=== PATIENT | female | born 1970 | race Asian ===

== ENCOUNTER 2017-10-10 09:21 | Emergency (ER) | payer OTHER | END 2017-10-10 09:57 | disposition home or self-care (01) | LOC: M ED 09:21 | DX: J32.9 Chronic sinusitis, unspecified (principal); R05 Cough; Z87.09 Personal history of other diseases of the respiratory system; Z88.8 Allergy status to other drugs, medicaments and biological substances | CPT/HCPCS: 99282 ==

== ENCOUNTER → 2018-03-21 | Outpatient (REF) | payer OTHER ==
[2018-03-21 17:06] LABS: ALBUMIN 4.1 GM/DL (3.2-5.2); ALBUMIN/GLOBULIN RATIO 1.14 (1.00-1.93); ALKALINE PHOSPHATASE 52 U/L (45-117); ALT/SGPT 21 U/L (12-78); ANION GAP 7 MEQ/L (8-16); AST/SGOT 16 U/L (7-37); BILIRUBIN,TOTAL 0.4 MG/DL (0.2-1.0); BLOOD UREA NITROGEN 10 MG/DL (7-18); CALCIUM LEVEL 8.7 MG/DL (8.5-10.1); CARBON DIOXIDE LEVEL 31 MEQ/L (21-32); CHLORIDE LEVEL 104 MEQ/L (98-107); CREATININE FOR GFR 0.62 MG/DL (0.55-1.30); FREE T4 0.73 NG/DL (0.76-1.46); GLOMERULAR FILTRATION RATE > 60.0 (>58); GLUCOSE, FASTING 81 MG/DL (70-100); POTASSIUM SERUM 3.4 MEQ/L (3.5-5.1); SODIUM LEVEL 142 MEQ/L (136-145); TOTAL PROTEIN 7.7 GM/DL (6.4-8.2)
== END ==
LOC: M SFHCPLAZ 13:54
DX: E89.0 Postprocedural hypothyroidism (principal)
CPT/HCPCS: 84443

== ENCOUNTER → 2018-05-07 | Outpatient (REF) | payer OTHER | LOC: M SFHCPLAZ 18:16 | DX: Z12.4 Encounter for screening for malignant neoplasm of cervix (principal) | CPT/HCPCS: 88142 ==

== ENCOUNTER → 2018-05-07 | Outpatient (REF) | payer OTHER ==
[2018-05-07 17:40] LABS: FREE T4 0.65 NG/DL (0.76-1.46)
== END ==
LOC: M SFHCPLAZ 15:13
DX: E89.0 Postprocedural hypothyroidism (principal)
CPT/HCPCS: 84443

== ENCOUNTER → 2018-05-14 | Outpatient (CLI) | payer OTHER | LOC: M WHC 07:52 | DX: Z12.31 Encounter for screening mammogram for malignant neoplasm of breast (principal); Z80.41 Family history of malignant neoplasm of ovary | CPT/HCPCS: 77067 ==

== ENCOUNTER → 2018-07-04 | Outpatient (REF) | payer OTHER ==
[~2018-07-04] MED LIST: CHERSYP3 PO; KEFL500C17 PO; TESS100C PO
[2018-07-04 12:14] LABS: FREE T4 0.97 NG/DL (0.76-1.46); THYROID STIMULATING HORMONE 10.4 uIU/ML (0.358-3.740)
[2018-07-04 12:16] LABS: TOTAL 25(OH) VITAMIN D 40.6 NG/ML (30.0-100.0)
== END ==
LOC: M SFHCPLAZ 07:57
PROVIDERS: ATTEND Nurse Practitioner Family
DX: E89.0 Postprocedural hypothyroidism (principal)

== ENCOUNTER → 2018-09-11 | Outpatient (REF) | payer OTHER ==
[2018-09-11 10:57] LABS: FREE T4 1.15 NG/DL (0.76-1.46); THYROID STIMULATING HORMONE 0.707 uIU/ML (0.358-3.740)
== END ==
LOC: M SFHCPLAZ 08:34
PROVIDERS: ATTEND Nurse Practitioner Family
DX: E89.0 Postprocedural hypothyroidism (principal)

== ENCOUNTER → 2018-11-17 | Outpatient (REF) | payer OTHER ==
[2018-11-17 13:33] LABS: BLOOD UREA NITROGEN 11 MG/DL (7-18); CALCIUM LEVEL 8.5 MG/DL (8.5-10.1); CARBON DIOXIDE LEVEL 27 MEQ/L (21-32); CHLORIDE LEVEL 104 MEQ/L (98-107); CREATININE FOR GFR 0.65 MG/DL (0.55-1.30); GLOMERULAR FILTRATION RATE > 60.0 (>58); GLUCOSE, FASTING 72 MG/DL (70-100); MAGNESIUM LEVEL 2.4 MG/DL (1.8-2.4); POTASSIUM SERUM 3.4 MEQ/L (3.5-5.1); SODIUM LEVEL 138 MEQ/L (136-145)
== END ==
LOC: M SFHCPLAZ 08:47
PROVIDERS: ATTEND Nurse Practitioner Family
DX: E89.0 Postprocedural hypothyroidism (principal); R03.0 Elevated blood-pressure reading, without diagnosis of hypertension

== ENCOUNTER 2018-12-24 08:29 | Emergency (ER) | payer OTHER ==
[~2018-12-24] VITALS: Ht 157.5 cm; Wt 60.6 kg
[2018-12-24] MEDS ORDERED: LEVO125T4 PO (08:51)
[2018-12-24] MEDS ORDERED: LABE10TAB PO (08:52)
[2018-12-24 10:00] LABS: BASO # 0.1 10^3/uL (0.0-0.2); BASO % 0.7 % (0.0-1.0); EOS # 0.2 10^3/uL (0.0-0.50); EOS % 2.7 % (0.0-3.0); HEMATOCRIT 41.5 % (36.0-47.0); HEMOGLOBIN 13.8 g/dl (12.0-15.5); LYMPH # 1.6 10^3/uL (1.5-4.5); LYMPH % 23.1 % (24.0-44.0); MEAN CORPUSCULAR HEMOGLOBIN 30.3 pg (27.0-33.0); MEAN CORPUSCULAR HGB CONC 33.3 g/dl (32.0-36.5); MONO # 0.4 10^3/uL (0.0-0.8); MONO % 5.8 % (0.0-5.0); NEUTROPHILS # 4.5 10^3/uL (1.8-7.7); NEUTROPHILS % 67.6 % (36.0-66.0); PLATELET COUNT, AUTOMATED 249 10^3/uL (150-450); RED BLOOD COUNT 4.56 10^6/uL (4.00-5.40); WHITE BLOOD COUNT 6.7 10^3/uL (4.0-10.0)
[2018-12-24 10:24] LABS: BLOOD UREA NITROGEN 12 MG/DL (7-18); CALCIUM LEVEL 8.1 MG/DL (8.5-10.1); CARBON DIOXIDE LEVEL 27 MEQ/L (21-32); CHLORIDE LEVEL 108 MEQ/L (98-107); CREATININE FOR GFR 0.74 MG/DL (0.55-1.30); GLOMERULAR FILTRATION RATE > 60.0 (>58); GLUCOSE, FASTING 125 MG/DL (70-100); POTASSIUM SERUM 3.7 MEQ/L (3.5-5.1); SODIUM LEVEL 141 MEQ/L (136-145)
[2018-12-24 11:45] VITALS: BP 166/99
[2018-12-24] MEDS ORDERED: ACETAMINOPHEN 325 MG TAB PO ONE (11:45)
--- NOTE | 2018-12-24 12:08 | REP ---
PELVIC ULTRASOUND: Real-time sonographic evaluation of the pelvis performed utilizing transabdominal and endovaginal technique. Bladder measures 8.0 x 7.2 x 10.0 cm. Uterus measures 9.4 x 4.4 x 6.5 cm. Endometrial thickness is 7 mm. There are multiple fibroids in the myometrium. Largest is 3.4 x 1.7 x 1.9 cm. Right ovary measures 6.5 x 3.6 x 4.4 cm and contains a hypoechoic homogeneous lesion measuring 5.7 x 3.4 x 2.8 cm representing either a hemorrhagic cyst or endometrioma most likely. Left ovary measures 2.6 x 1.9 x 2.0 cm. There is no torsion bilaterally, resistive index right ovary 0.55 and left ovary 0.59. No free fluid is seen. IMPRESSION: Fibroid uterus. Hypoechoic nodule in the right ovary with homogeneous internal echoes probably represents a hemorrhagic cyst or endometrioma. This measures 5.7 x 3.4 x 2.8 cm. Recommend cheese wrapper consult. Further evaluation could be made with followup ultrasound in about 2 months or MRI of the pelvis. Electronically Signed by Jose Hamilton MD 12/24/2018 04:55 P
--- NOTE | 2018-12-26 07:39 | ED PDOC ---
Post-Departure Follow-Up aby betancourt and dr lawrence faxed formal report of pelvic us for fu Kem Quintana MD Dec 26, 2018 07:39
== END 2018-12-24 11:56 | disposition home or self-care (01) ==
LOC: M ED 08:29
DX: D25.9 Leiomyoma of uterus, unspecified (principal); N83.8 Other noninflammatory disorders of ovary, fallopian tube and broad ligament; R10.2 Pelvic and perineal pain; E03.9 Hypothyroidism, unspecified; I10 Essential (primary) hypertension; Z79.899 Other long term (current) drug therapy; Z88.8 Allergy status to other drugs, medicaments and biological substances

== ENCOUNTER → 2019-01-28 | Outpatient (REF) | payer OTHER ==
[~2019-01-28] MED LIST changes: +LABE10TAB PO; +LEVO125T4 PO
[2019-01-28 12:58] LABS: ALBUMIN 4.1 GM/DL (3.2-5.2); ALT/SGPT 21 U/L (12-78); BILIRUBIN,TOTAL 0.6 MG/DL (0.2-1.0); BLOOD UREA NITROGEN 11 MG/DL (7-18); CALCIUM LEVEL 8.7 MG/DL (8.5-10.1); CARBON DIOXIDE LEVEL 28 MEQ/L (21-32); CHLORIDE LEVEL 107 MEQ/L (98-107); CHOLESTEROL LEVEL 200 MG/DL (<200); CHOLESTEROL RISK RATIO 3.703 (<5); CREATININE FOR GFR 0.74 MG/DL (0.55-1.30); GLOMERULAR FILTRATION RATE > 60.0 (>58); GLUCOSE, FASTING 91 MG/DL (70-100); HDL CHOLESTEROL 54 MG/DL (>40); LDL CHOLESTEROL 131 MG/DL (<100); NON-HDL-C 146 MG/DL; SODIUM LEVEL 141 MEQ/L (136-145); TOTAL PROTEIN 7.9 GM/DL (6.4-8.2); TRIGLYCERIDES LEVEL 75 MG/DL (<150)
== END ==
LOC: M SFHCPLAZ 09:45
PROVIDERS: ATTEND Nurse Practitioner Family
DX: Z13.220 Encounter for screening for lipoid disorders (principal); I10 Essential (primary) hypertension; E89.0 Postprocedural hypothyroidism

== ENCOUNTER → 2019-02-25 | Outpatient (CLI) | payer OTHER ==
--- NOTE | 2019-02-25 18:35 | REP ---
Pelvic sonography: History: Unspecified ovarian cyst. Comparison pelvic sonography December 24, 2018 showed a 5.7 cm hypoechoic lesion in the right ovary. Findings: Uterine dimensions are 8.5 x 4.7 x 4.2 cm. Endometrial echo is 1.1 cm thick. No free fluid is seen in the cul-de-sac. Normal left ovary is seen measuring 3.0 x 2.1 x 2.4 cm. Right ovary is enlarged measuring 6.6 x 3.4 x 5.7 cm. There is a 4.8 x 3.0 x 4.2 cm hypoechoic lesion in the right ovary containing echogenic foci. There is Doppler flow in its periphery. Normal Doppler flow is seen in the left ovary. There are multiple uterine fibroids, the largest of which measures 2.7 cm in greatest diameter. Impression: Fibroid uterus. Persistent 4.8 cm hypoechoic lesion in the right adnexa. Possible endometrioma versus cystic ovarian neoplasm. Electronically Signed by Elvis Lisa MD 02/25/2019 09:13 P
== END ==
LOC: M RAD 11:08
PROVIDERS: ATTEND Obstetrics & Gynecology
DX: D25.9 Leiomyoma of uterus, unspecified (principal); N83.291 Other ovarian cyst, right side

== ENCOUNTER → 2019-04-16 | Outpatient (CLI) | payer OTHER ==
[2019-04-17 11:05] LABS: CA 125 49.9 U/ML (<30.2); CA19-9 TUMOR MARKER,CARBOHYDRA 12.7 U/ML (<35.0)
[2019-04-22 08:19] LABS: HE4 52.6 pmol/L (0.0-63.6); INHIBIN B 73.8 pg/mL (.)
== END ==
LOC: M SMT 08:44
PROVIDERS: ATTEND Obstetrics & Gynecology
DX: N83.201 Unspecified ovarian cyst, right side (principal)

== ENCOUNTER → 2019-04-22 | Outpatient (CLI) | payer OTHER ==
--- NOTE | 2019-04-22 10:31 | REP ---
PELVIC ULTRASOUND: Real-time sonographic evaluation of the pelvis was performed. Comparison made with prior studies 12/24/2018 and 02/25/2019. Transabdominal and endovaginal technique is utilized. The urinary bladder measures 2.8 x 1.8 x 5.7 cm. The uterus measures 9.2 x 4.9 x 5.8 cm. Multiple fibroids are again seen in the uterus. The largest measures 2.1 x 2.0 x 2.6 cm. This is posteriorly located. Endometrial thickness is 10 mm. Right ovary is again noted to be enlarged at 5.6 x 3.6 x 5.3 cm. Left ovary measures 4.0 x 2.6 x 3.8 cm. There is no ovarian torsion bilaterally. Once again in the right ovary there is a hypoechoic mass with diffuse low level echoes having the appearance of a complex cyst. There is a tiny echogenic focus within it. It measures 4.1 x 2.4 x 4.4 cm. On the original ultrasound of 12/24/2018 the measurements were 5.7 x 3.4 x 2.8 cm. Overall volume of the lesion has decreased from 27.1 mL to 21.6 mL. In the left ovary there is a simple appearing cyst with a thin septation 2.8 x 1.6 x 3.2 cm. No free fluid is seen. IMPRESSION: Fibroid uterus. Complex cystic lesion again seen in the right ovary as discussed above. Based on measurements and volume calculations this has slightly decreased in size since the original ultrasound 12/24/2018. Simple cyst with thin septation left ovary was not seen on the prior studies. Electronically Signed by Jose Hamilton MD 04/22/2019 06:22 P
== END ==
LOC: M RAD 07:47
PROVIDERS: ATTEND Obstetrics & Gynecology
DX: N83.201 Unspecified ovarian cyst, right side (principal)

== ENCOUNTER → 2019-05-14 | Outpatient (REF) | payer OTHER ==
[2019-05-14 15:54] LABS: BLOOD UREA NITROGEN 12 MG/DL (7-18); CALCIUM LEVEL 8.6 MG/DL (8.5-10.1); CARBON DIOXIDE LEVEL 29 MEQ/L (21-32); CHLORIDE LEVEL 105 MEQ/L (98-107); CREATININE FOR GFR 0.74 MG/DL (0.55-1.30); FREE T4 1.17 NG/DL (0.76-1.46); GLOMERULAR FILTRATION RATE > 60.0 (>58); GLUCOSE, FASTING 135 MG/DL (70-100); POTASSIUM SERUM 3.7 MEQ/L (3.5-5.1); SODIUM LEVEL 139 MEQ/L (136-145)
== END ==
LOC: M SFHCPLAZ 13:39
PROVIDERS: ATTEND Nurse Practitioner Family
DX: E89.0 Postprocedural hypothyroidism (principal); I10 Essential (primary) hypertension

== ENCOUNTER → 2019-07-29 | Outpatient (CLI) | payer OTHER ==
--- NOTE | 2019-07-30 02:50 | REP ---
Clinical: Follow-up right ovarian cyst. Comparison: 04/22/2019. Technique: Transabdominal pelvic ultrasound followed by transvaginal examination for better evaluation of the endometrium and adnexa with color Doppler evaluation of the ovaries. Findings: Anteverted uterus measures 9.2 x 5.0 x 5.4 cm. Endometrial complex measures 13 mm thickness. Possible posterior subserosal fibroid measuring 2.1 x 1.6 x 2.7 cm cannot be excluded. Left ovary is not visualized. Right ovary measures 4.3 x 2.3 x 2.4 cm and includes 2.2 x 2.2 x 2.1 cm simple physiologic cyst and 1.0 x 1.2 x 0.9 cm complex possibly hemorrhagic cysts. Normal vascularity to the right ovary noted without torsion. Bladder is unremarkable and measures approximately 11.3 x 6.1 x 10.8 cm. Impression: 1. Heterogeneous uterus with possible 2.7 cm posterior subserosal fibroid. 2. Cystic changes to the right ovary on current examination appear physiologic.
== END ==
LOC: M WHC 07:41
PROVIDERS: ATTEND Obstetrics & Gynecology
DX: N83.201 Unspecified ovarian cyst, right side (principal)

== ENCOUNTER → 2019-07-31 | Outpatient (CLI) | payer OTHER ==
[2019-07-31 11:20] LABS: BLOOD UREA NITROGEN 12 MG/DL (7-18); CALCIUM LEVEL 8.8 MG/DL (8.5-10.1); CARBON DIOXIDE LEVEL 27 MEQ/L (21-32); CHLORIDE LEVEL 104 MEQ/L (98-107); CREATININE FOR GFR 0.64 MG/DL (0.55-1.30); FREE T4 1.18 NG/DL (0.76-1.46); GLOMERULAR FILTRATION RATE > 60.0 (>58); GLUCOSE, FASTING 106 MG/DL (70-100); SODIUM LEVEL 141 MEQ/L (136-145); THYROID STIMULATING HORMONE 0.114 uIU/ML (0.358-3.740)
== END ==
LOC: M PLALAB 08:04
PROVIDERS: ATTEND Nurse Practitioner Family
DX: E89.0 Postprocedural hypothyroidism (principal); I10 Essential (primary) hypertension

== ENCOUNTER → 2019-08-25 | Outpatient (REF) | payer OTHER | LOC: M SFHCWAGY 18:34 | PROVIDERS: ATTEND Obstetrics & Gynecology | DX: Z12.4 Encounter for screening for malignant neoplasm of cervix (principal) ==

== ENCOUNTER → 2019-10-09 | Outpatient (CLI) | payer OTHER ==
[2019-10-09 16:48] LABS: CREATININE, URINE 80.2 MG/DL; MALB URINE SIEMENS 17.5 MG/L; MAU/CREAT RATIO 21.8 MCG/MG (0.0-30.0)
[2019-10-09 16:49] LABS: BLOOD UREA NITROGEN 11 MG/DL (7-18); CALCIUM LEVEL 8.4 MG/DL (8.5-10.1); CARBON DIOXIDE LEVEL 27 MEQ/L (21-32); CHLORIDE LEVEL 104 MEQ/L (98-107); CREATININE FOR GFR 0.62 MG/DL (0.55-1.30); GLOMERULAR FILTRATION RATE > 60.0 (>58); GLUCOSE, FASTING 85 MG/DL (70-100); POTASSIUM SERUM 3.6 MEQ/L (3.5-5.1); SODIUM LEVEL 138 MEQ/L (136-145)
[2019-10-09 16:50] LABS: TOTAL 25(OH) VITAMIN D 33.9 NG/ML (30.0-100.0)
== END ==
LOC: M WUC 14:59
PROVIDERS: ATTEND Nurse Practitioner Family
DX: E89.0 Postprocedural hypothyroidism (principal); I10 Essential (primary) hypertension; M62.830 Muscle spasm of back

== ENCOUNTER 2019-11-16 08:21 | Emergency (ER) | payer OTHER ==
[~2019-11-16] VITALS: Ht 157.5 cm; Wt 64.2 kg
[2019-11-16] MEDS ORDERED: TYLENOL (08:32)
[2019-11-16] MEDS: ACETAMINOPHEN TAB 650MG DOSE (2X325MG) PO ONE (08:53)
[2019-11-16 08:58] LABS: BASO # 0.1 10^3/uL (0.0-0.2); EOS # 0.1 10^3/uL (0.0-0.5); EOS % 1.1 % (0.0-3.0); HEMATOCRIT 43.2 % (36.0-47.0); HEMOGLOBIN 15.1 g/dl (12.0-15.5); LYMPH # 2.1 10^3/uL (1.5-5.0); LYMPH % 26.3 % (24.0-44.0); MEAN CORPUSCULAR HEMOGLOBIN 30.2 pg (27.0-33.0); MEAN CORPUSCULAR VOLUME 86.4 fl (80.0-96.0); MONO # 0.5 10^3/uL (0.0-0.8); NEUTROPHILS # 5.2 10^3/uL (1.5-8.5); NEUTROPHILS % 64.7 % (36.0-66.0); PLATELET COUNT, AUTOMATED 283 10^3/uL (150-450); WHITE BLOOD COUNT 8.1 10^3/uL (4.0-10.0)
[2019-11-16 08:59] LABS: AMORPHOUS SEDIMENT SMALL (NEGATIVE); APPEARANCE, URINE HAZY (CLEAR); BACTERIA, URINE AUTO 1+ (NEGATIVE); BILIRUBIN, URINE AUTO NEGATIVE (NEGATIVE); BLOOD, URINE BLOOD 3+ (NEGATIVE); COLOR, URINE YELLOW (YELLOW); GLUCOSE, URINE (UA) AUTO NEGATIVE (NEGATIVE); KETONE, URINE AUTO NEGATIVE (NEGATIVE); LEUKOCYTE ESTERASE, URINE AUTO TRACE (NEGATIVE); MUCUS, URINE SMALL (NEGATIVE); NITRITE, URINE AUTO NEGATIVE (NEGATIVE); PROTEIN, URINE AUTO 3+ mg/dL (NEGATIVE); RBC, URINE AUTO TNTC /HPF (0-3); SPECIFIC GRAVITY URINE AUTO 1.018 (1.002-1.035); SQUAMOUS EPITHELIAL CELL UR AU 1 /HPF (0-6); UROBILINOGEN, URINE AUTO 0.2 mg/dL (0.0-2.0); WBC, URINE AUTO 1 /HPF (0-3)
[2019-11-16 09:26] LABS: ALBUMIN 4.3 GM/DL (3.2-5.2); ALT/SGPT 28 U/L (12-78); BILIRUBIN,TOTAL 0.4 MG/DL (0.2-1.0); BLOOD UREA NITROGEN 11 MG/DL (7-18); CARBON DIOXIDE LEVEL 26 MEQ/L (21-32); CHLORIDE LEVEL 102 MEQ/L (98-107); CREATININE FOR GFR 0.76 MG/DL (0.55-1.30); GLOMERULAR FILTRATION RATE > 60.0 (>58); GLUCOSE, FASTING 120 MG/DL (70-100); POTASSIUM SERUM 3.6 MEQ/L (3.5-5.1); SODIUM LEVEL 137 MEQ/L (136-145); TOTAL PROTEIN 8.5 GM/DL (6.4-8.2)
--- NOTE | 2019-11-16 10:23 | REP ---
PELVIC ULTRASOUND: Real-time sonographic evaluation of the pelvis performed. Urinary bladder is empty. The uterus measures 8.2 x 5.5 x 6.2 cm. Endometrial thickness is 12 mm. There appears to be a posterior uterine fibroid 2.6 x 2.0 x 2.2. No endometrial fluid collection is seen. Right ovary measures 3.8 x 2.2 x 3.1 cm and left ovary 2.5 x 2.5 x 2.2 cm. Dominant follicle in the right ovary has a maximum diameter if 1.7 cm. There is no evidence of ovarian torsion, blood flow is seen in each ovary with duplex Doppler evaluation. No adnexal mass or free fluid is seen. IMPRESSION: Posterior uterine fibroid 2.6 cm maximally. No adnexal mass or free fluid. No evidence of torsion. Electronically Signed by Jose Hamilton MD 11/16/2019 11:57 A
[2019-11-16] MEDS: ONDANSETRON 4MG/2ML VIAL IV ONE (11:28)
[2019-11-16] MEDS: MORPHINE 4 MG/ML 1ML VIAL/SYRINGE (J2270) IV PRN (11:30)
--- NOTE | 2019-11-16 11:36 | REP ---
REASON: Right flank pain. PRIORS: None. The lung bases are clear. There is a 4 mm sized nonobstructing left nephrolith in the interpolar region. There are no right nephroliths. There are no ureteroliths on either side. There is no hydronephrosis or hydroureter. There are no urinary bladder calcifications. There are bilateral pelvic phleboliths. There are no choleliths. Limited evaluation of the solid intra-abdominal organs have no gross abnormalities. Evaluation of the pancreas and adrenal glands show no gross abnormalities. There is no free fluid or free air in the abdomen or pelvis. Limited evaluation of the intra-abdominal and intrapelvic bowel loops and their mesenteries show them to be within normal limits. The appendix is well visualized and is within normal limits. No free fluid or free air is seen in the abdomen or pelvis. Bone window technique throughout the examination shows the osseous structures to be within normal limits. IMPRESSION: There is a single tiny nonobstructing left nephrolith as described above. The examination is otherwise unremarkable. Electronically Signed by Harmeet Davidson DO 11/16/2019 12:12 P
[2019-11-16 13:29] VITALS: BP 135/85
== END 2019-11-16 13:35 | disposition home or self-care (01) ==
LOC: M ED 08:21
DX: D25.9 Leiomyoma of uterus, unspecified (principal); N93.8 Other specified abnormal uterine and vaginal bleeding; Z87.42 Personal history of other diseases of the female genital tract; Z88.6 Allergy status to analgesic agent; Z79.899 Other long term (current) drug therapy
CPT/HCPCS: 74176; 76830; 76856; 80053; 81001; 84702; 85025; 93976; 96374; 96375; 99283; J2270; J2405

== ENCOUNTER → 2020-01-30 | Outpatient (CLI) | payer OTHER ==
[~2020-01-30] MED LIST changes: +TYLENOL
[2020-01-30 18:33] LABS: BLOOD UREA NITROGEN 11 MG/DL (7-18); CALCIUM LEVEL 8.3 MG/DL (8.5-10.1); CARBON DIOXIDE LEVEL 28 MEQ/L (21-32); CHLORIDE LEVEL 106 MEQ/L (98-107); CREATININE FOR GFR 0.72 MG/DL (0.55-1.30); FREE T4 1.33 NG/DL (0.76-1.46); GLOMERULAR FILTRATION RATE > 60.0 (>58); GLUCOSE, FASTING 93 MG/DL (70-100); POTASSIUM SERUM 4.2 MEQ/L (3.5-5.1); SODIUM LEVEL 139 MEQ/L (136-145); THYROID STIMULATING HORMONE 0.818 uIU/ML (0.358-3.740)
== END ==
LOC: M WUC 08:28
PROVIDERS: ATTEND Nurse Practitioner Family
DX: E89.0 Postprocedural hypothyroidism (principal); I10 Essential (primary) hypertension

== ENCOUNTER → 2020-04-30 | Outpatient (CLI) | payer OTHER ==
[2020-04-30 14:06] LABS: ALBUMIN 4.1 GM/DL (3.2-5.2); ALT/SGPT 28 U/L (12-78); BILIRUBIN,TOTAL 0.6 MG/DL (0.2-1.0); BLOOD UREA NITROGEN 13 MG/DL (7-18); CALCIUM LEVEL 9.2 MG/DL (8.5-10.1); CARBON DIOXIDE LEVEL 31 MEQ/L (21-32); CHLORIDE LEVEL 105 MEQ/L (98-107); CHOLESTEROL LEVEL 210 MG/DL (<200); CHOLESTEROL RISK RATIO 3.442 (<5); CREATININE FOR GFR 0.72 MG/DL (0.55-1.30); FREE T4 0.99 NG/DL (0.76-1.46); GLOMERULAR FILTRATION RATE > 60.0 (>58); GLUCOSE, FASTING 89 MG/DL (70-100); HDL CHOLESTEROL 61 MG/DL (>40); LDL CHOLESTEROL 129 MG/DL (<100); NON-HDL-C 149 MG/DL; POTASSIUM SERUM 4.5 MEQ/L (3.5-5.1); SODIUM LEVEL 139 MEQ/L (136-145); TOTAL PROTEIN 7.7 GM/DL (6.4-8.2); TRIGLYCERIDES LEVEL 98 MG/DL (<150)
[2020-04-30 14:07] LABS: CREATININE, URINE 49.6 MG/DL; MALB URINE SIEMENS 46.8 MG/L; MAU/CREAT RATIO 94.3 MCG/MG (0.0-30.0)
[2020-05-02 11:45] LABS: VITAMIN B12 LEVEL 532 PG/ML (247-911)
[2020-05-02 11:46] LABS: FOLATE 21.6 NG/ML (>5.4)
== END ==
LOC: M WUC 09:05
PROVIDERS: ATTEND Nurse Practitioner Family
DX: I10 Essential (primary) hypertension (principal); E89.0 Postprocedural hypothyroidism; R20.2 Paresthesia of skin; M62.830 Muscle spasm of back

== ENCOUNTER → 2020-05-19 | Outpatient (CLI) | payer OTHER ==
--- NOTE | 2020-05-19 10:47 | REP ---
INDICATION: LEFT ANTERIOR SHOULDER PAIN. COMPARISON: None. TECHNIQUE: Three views FINDINGS: AC joint shows no widening of the joint space or elevated of the clavicle in relation to the acromion. No fracture of the clavicle scapula humerus or adjacent ribs see no subluxation or dislocation of the humeral head and no abnormal soft tissue calcifications. Only minimal degenerative changes at the inferior margin of the glenohumeral joint. IMPRESSION: Minimal degenerative changes glenohumeral joint without fracture, subluxation, abnormal soft tissue calcification or AC joint abnormality. <Electronically signed by Bryan Cyr > 05/19/20 [id number]
== END ==
LOC: M WUC 09:37
PROVIDERS: ATTEND Nurse Practitioner Family
DX: M25.512 Pain in left shoulder (principal)

== ENCOUNTER → 2020-08-01 | Outpatient (CLI) | payer OTHER ==
[~2020-08-01] MED LIST changes: +LABE100T4 PO; -LABE10TAB PO
[2020-08-01 11:07] LABS: FREE T4 1.5 NG/DL (0.76-1.46); THYROID STIMULATING HORMONE 0.167 uIU/ML (0.358-3.740)
== END ==
LOC: M WUC 08:28
PROVIDERS: ATTEND Nurse Practitioner Family
DX: E89.0 Postprocedural hypothyroidism (principal)

== ENCOUNTER → 2020-10-19 | Outpatient (CLI) | payer OTHER ==
[2020-10-19 10:49] LABS: BLOOD UREA NITROGEN 11 MG/DL (7-18); CALCIUM LEVEL 9.5 MG/DL (8.5-10.1); CARBON DIOXIDE LEVEL 28 MEQ/L (21-32); CHLORIDE LEVEL 104 MEQ/L (98-107); CREATININE FOR GFR 0.61 MG/DL (0.55-1.30); FREE T4 1.53 NG/DL (0.76-1.46); GLOMERULAR FILTRATION RATE > 60.0 (>58); GLUCOSE, FASTING 97 MG/DL (70-100); POTASSIUM SERUM 3.9 MEQ/L (3.5-5.1); SODIUM LEVEL 139 MEQ/L (136-145); THYROID STIMULATING HORMONE 0.127 uIU/ML (0.358-3.740)
[2020-10-19 10:53] LABS: CREATININE, URINE 15.7 MG/DL; MAU/CREAT RATIO 197.4 MCG/MG (0.0-30.0)
== END ==
LOC: M WUC 08:06
PROVIDERS: ATTEND Nurse Practitioner Family
DX: E89.0 Postprocedural hypothyroidism (principal); I10 Essential (primary) hypertension

== ENCOUNTER → 2020-11-17 | Outpatient (CLI) | payer OTHER ==
--- NOTE | 2020-11-17 18:21 | REP ---
INDICATION: R OVARIAN CYST. COMPARISON: Comparison CT study is from November 16, 2019.. TECHNIQUE: Transabdominal and transvaginal scanning were performed. FINDINGS: Uterine dimensions are normal at 9.2 x 4.3 x 4.7 cm. Endometrial echo is 0.5 cm thick and centrally placed. No free fluid is seen in the cul-de-sac. Visualized bladder berg are smooth. The right ovary has dimensions of 4.5 x 4.4 x 5.2 cm. there is a complex hypoechoic cyst in the right ovary measuring 4.6 x 3.4 x 4.6 cm. Right ovarian size is similar to the prior CT study. The left ovary dimensions are normal as well at 3.2 x 2.1 x 2.5 cm. IMPRESSION: 4.6 cm complex cystic lesion right ovary. Otherwise negative pelvic sonography.. <Electronically signed by Baudilio Lisa > 11/17/20 [id number]
== END ==
LOC: M WHC 10:13
PROVIDERS: ATTEND Obstetrics & Gynecology
DX: N83.201 Unspecified ovarian cyst, right side (principal)

== ENCOUNTER → 2020-11-17 | Outpatient (CLI) | payer OTHER ==
--- NOTE | 2020-11-17 14:34 | REP ---
INDICATION: ADDL VIEWS - LEFT BREAST KELVIN DENSITY. COMPARISON: 11/10/2020 screening exam TECHNIQUE: Diagnostic digital magnified spot compression views of the left breast were obtained in the CC and MLO projections over the region of a potential kelvin asymmetric density at the 9 o'clock position. FINDINGS: Diagnostic left mammogram shows the area of interest seen on the screening examination to have compressed out to normal appearing breast parenchyma. No abnormalities are noted. IMPRESSION: BIRADS/ACR category 2 negative mammogram. The patient letter being requested is M1. RECOMMENDATION: Repeat screening mammography recommended 1 year (for women over 40). <Electronically signed by Harmeet Davidson > 11/17/20 [id number]
== END ==
LOC: M WHC 10:21
PROVIDERS: ATTEND Nurse Practitioner Family
DX: R92.8 Other abnormal and inconclusive findings on diagnostic imaging of breast (principal)

== ENCOUNTER → 2020-12-20 | Outpatient (CLI) | payer OTHER ==
[2020-12-20 10:24] LABS: APPEARANCE, URINE HAZY (CLEAR); BACTERIA, URINE AUTO NEGATIVE (NEGATIVE); BILIRUBIN, URINE AUTO NEGATIVE (NEGATIVE); BLOOD, URINE BLOOD NEGATIVE (NEGATIVE); COLOR, URINE YELLOW (YELLOW); GLUCOSE, URINE (UA) AUTO NEGATIVE (NEGATIVE); KETONE, URINE AUTO NEGATIVE (NEGATIVE); LEUKOCYTE ESTERASE, URINE AUTO NEGATIVE (NEGATIVE); NITRITE, URINE AUTO NEGATIVE (NEGATIVE); PROTEIN, URINE AUTO NEGATIVE (NEGATIVE); RBC, URINE AUTO 1 /HPF (0-3); SQUAMOUS EPITHELIAL CELL UR AU 0 /HPF (0-6); UROBILINOGEN, URINE AUTO 0.2 mg/dL (0.0-2.0); WBC, URINE AUTO 0 /HPF (0-3)
[2020-12-20 11:14] LABS: BLOOD UREA NITROGEN 12 MG/DL (7-18); CALCIUM LEVEL 9.4 MG/DL (8.5-10.1); CARBON DIOXIDE LEVEL 31 MEQ/L (21-32); CHLORIDE LEVEL 103 MEQ/L (98-107); CREATININE FOR GFR 0.68 MG/DL (0.55-1.30); FREE T4 1.08 NG/DL (0.76-1.46); GLOMERULAR FILTRATION RATE > 60.0 (>58); GLUCOSE, FASTING 98 MG/DL (70-100); POTASSIUM SERUM 3.7 MEQ/L (3.5-5.1); SODIUM LEVEL 139 MEQ/L (136-145)
== END ==
LOC: M WUC 08:04
PROVIDERS: ATTEND Nurse Practitioner Family
DX: I10 Essential (primary) hypertension (principal); E89.0 Postprocedural hypothyroidism; R80.9 Proteinuria, unspecified

== ENCOUNTER → 2021-03-14 | Outpatient (REF) | payer OTHER ==
[2021-03-14 13:43] LABS: CREATININE, URINE 33.9 MG/DL; MALB URINE SIEMENS 87.8 MG/L; MAU/CREAT RATIO 258.9 MCG/MG (0.0-30.0)
[2021-03-14 14:09] LABS: BLOOD UREA NITROGEN 13 MG/DL (7-18); CALCIUM LEVEL 8.7 MG/DL (8.5-10.1); CARBON DIOXIDE LEVEL 30 MEQ/L (21-32); CHLORIDE LEVEL 107 MEQ/L (98-107); CREATININE FOR GFR 0.74 MG/DL (0.55-1.30); GLOMERULAR FILTRATION RATE > 60.0 (>58); GLUCOSE, FASTING 106 MG/DL (70-100); POTASSIUM SERUM 3.5 MEQ/L (3.5-5.1); SODIUM LEVEL 140 MEQ/L (136-145)
== END ==
LOC: M WUC 11:22
PROVIDERS: ATTEND Nurse Practitioner Family
DX: E89.0 Postprocedural hypothyroidism (principal); I10 Essential (primary) hypertension; R80.9 Proteinuria, unspecified

== ENCOUNTER → 2021-07-18 | Outpatient (CLI) | payer OTHER ==
[2021-07-18 19:36] LABS: MAU/CREAT RATIO 96.6 MCG/MG (0.0-30.0)
[2021-07-18 19:50] LABS: ALBUMIN 4.2 GM/DL (3.2-5.2); ALT/SGPT 30 U/L (12-78); BILIRUBIN,TOTAL 0.2 MG/DL (0.2-1.0); BLOOD UREA NITROGEN 15 MG/DL (7-18); CARBON DIOXIDE LEVEL 27 MEQ/L (21-32); CHLORIDE LEVEL 103 MEQ/L (98-107); FREE T4 0.85 NG/DL (0.76-1.46); GLOMERULAR FILTRATION RATE > 60.0 (>58); GLUCOSE, FASTING 94 MG/DL (70-100); POTASSIUM SERUM 3.7 MEQ/L (3.5-5.1); SODIUM LEVEL 139 MEQ/L (136-145); TOTAL PROTEIN 8.1 GM/DL (6.4-8.2)
[2021-07-18 19:52] LABS: TOTAL 25(OH) VITAMIN D 24.5 NG/ML (30.0-100.0)
[2021-07-18 20:28] LABS: HEMOGLOBIN A1c 5.7 %
== END ==
LOC: M WUC 15:47
PROVIDERS: ATTEND Nurse Practitioner Adult Health
DX: Z00.00 Encounter for general adult medical examination without abnormal findings (principal); E55.9 Vitamin D deficiency, unspecified; E89.0 Postprocedural hypothyroidism; Z83.3 Family history of diabetes mellitus; R80.9 Proteinuria, unspecified

== ENCOUNTER → 2021-10-26 | Outpatient (CLI) | payer OTHER ==
[2021-10-26 13:38] LABS: ALBUMIN 4.1 GM/DL (3.2-5.2); ALT/SGPT 37 U/L (12-78); BILIRUBIN,TOTAL 0.8 MG/DL (0.2-1.0); BLOOD UREA NITROGEN 13 MG/DL (7-18); CARBON DIOXIDE LEVEL 31 MEQ/L (21-32); CHLORIDE LEVEL 104 MEQ/L (98-107); GLOMERULAR FILTRATION RATE > 60.0 (>58); GLUCOSE, FASTING 102 MG/DL (70-100); POTASSIUM SERUM 3.4 MEQ/L (3.5-5.1); SODIUM LEVEL 141 MEQ/L (136-145); THYROID STIMULATING HORMONE 0.195 uIU/ML (0.358-3.740); TOTAL 25(OH) VITAMIN D 41.1 NG/ML (30.0-100.0); TOTAL PROTEIN 7.5 GM/DL (6.4-8.2)
== END ==
LOC: M WUC 08:55
PROVIDERS: ATTEND Nurse Practitioner Adult Health
DX: E55.9 Vitamin D deficiency, unspecified (principal); E89.0 Postprocedural hypothyroidism; I10 Essential (primary) hypertension

== ENCOUNTER 2021-12-26 11:18 | Emergency (ER) | payer OTHER ==
[~2021-12-26] VITALS: Ht 157.5 cm; Wt 63.6 kg
[2021-12-26] MEDS ORDERED: ERGO500029 (11:27)
[2021-12-26] MEDS ORDERED: ACET1TAB55 PO (11:27)
[2021-12-26] MEDS ORDERED: methocarbamoL 750 MG TAB PO ONE (13:45)
[2021-12-26] MEDS ORDERED: predniSONE 20 MG TAB PO ONE (13:45)
[2021-12-26] MEDS ORDERED: LIDOCAINE 5% (LIDODERM) PATCH TD ONE (13:45)
[2021-12-26 14:12] VITALS: BP 160/90
[2021-12-26] MEDS ORDERED: METH-1165 PO (15:21)
[2021-12-26] MEDS ORDERED: PRED20TA PO (15:21)
[2021-12-26] MEDS ORDERED: LIDO5DIS41 TD (15:21)
[2021-12-26] MEDS ORDERED: **NOTE PATIENT COMMENT** MISC XX SCH (21:00)
== END 2021-12-26 15:35 | disposition home or self-care (01) ==
LOC: M ED 11:18
DX: S39.012A Strain of muscle, fascia and tendon of lower back, initial encounter (principal); X58.XXXA Exposure to other specified factors, initial encounter; Y99.1 Military activity; E03.9 Hypothyroidism, unspecified; Z79.890 Hormone replacement therapy; Z88.8 Allergy status to other drugs, medicaments and biological substances; Z88.6 Allergy status to analgesic agent
CPT/HCPCS: 99283; J7512

== ENCOUNTER 2022-01-01 12:12 | Emergency (ER) | payer OTHER ==
[~2022-01-01] VITALS: Ht 157.5 cm; Wt 63.6 kg
[~2022-01-01 12:12] MED LIST changes: +ACET1TAB55 PO; +ERGO500029; +LIDO5DIS41 TD; +METH-1165 PO; +PRED20TA PO
[2022-01-01] MEDS ORDERED: LIDOCAINE 5% (LIDODERM) PATCH TD ONE (13:25)
[2022-01-01] MEDS ORDERED: ACETAMINOPHEN 500 MG TAB PO ONE (13:25)
[2022-01-01] MEDS ORDERED: methocarbamoL 750 MG TAB PO ONE (13:25)
[2022-01-01] MEDS ORDERED: traMADol 50 MG TAB PO ONE (14:20)
[2022-01-01] MEDS ORDERED: TRAM50TA2 PO (14:33)
[2022-01-01 14:44] VITALS: BP 172/96
[2022-01-02] MEDS ORDERED: **NOTE PATIENT COMMENT** MISC XX ONE (02:00)
== END 2022-01-01 14:52 | disposition home or self-care (01) ==
LOC: M ED 12:12
DX: M51.36 Other intervertebral disc degeneration, lumbar region (principal); M51.37 Other intervertebral disc degeneration, lumbosacral region; X50.0XXA Overexertion from strenuous movement or load, initial encounter; Y99.0 Civilian activity done for income or pay; I10 Essential (primary) hypertension; E03.9 Hypothyroidism, unspecified; Z79.890 Hormone replacement therapy; Z79.899 Other long term (current) drug therapy; Z88.6 Allergy status to analgesic agent; Z88.8 Allergy status to other drugs, medicaments and biological substances

== ENCOUNTER → 2022-01-24 | Outpatient (REF) | payer OTHER ==
[~2022-01-24] MED LIST changes: +TRAM50TA2 PO
[2022-01-25 09:53] LABS: ALT/SGPT 52 U/L (12-78); BILIRUBIN,TOTAL 0.3 MG/DL (0.2-1.0); BLOOD UREA NITROGEN 10 MG/DL (7-18); CALCIUM LEVEL 9.1 MG/DL (8.5-10.1); CARBON DIOXIDE LEVEL 31 MEQ/L (21-32); CHLORIDE LEVEL 106 MEQ/L (98-107); CREATININE FOR GFR 0.69 MG/DL (0.55-1.30); GLOMERULAR FILTRATION RATE > 60.0 (>58); GLUCOSE, FASTING 137 MG/DL (70-100); POTASSIUM SERUM 3.8 MEQ/L (3.5-5.1); SODIUM LEVEL 142 MEQ/L (136-145); TOTAL PROTEIN 7.4 GM/DL (6.4-8.2)
[2022-01-25 09:59] LABS: TOTAL 25(OH) VITAMIN D 48.8 NG/ML (30.0-100.0)
== END ==
LOC: M LABWUC 08:55
PROVIDERS: ATTEND Nurse Practitioner Adult Health
DX: E87.6 Hypokalemia (principal); E89.0 Postprocedural hypothyroidism; E55.9 Vitamin D deficiency, unspecified

== ENCOUNTER → 2022-02-13 | Outpatient (CLI) | payer OTHER ==
[~2022-02-13] MED LIST changes: -LABE100T4 PO; +LABE100T6 PO
== END ==
LOC: M WHC 07:18
PROVIDERS: ATTEND Nurse Practitioner Adult Health
DX: Z12.31 Encounter for screening mammogram for malignant neoplasm of breast (principal)

== ENCOUNTER → 2022-02-21 | Outpatient (CLI) | payer OTHER | LOC: M WHC 06:53 | PROVIDERS: ATTEND Obstetrics & Gynecology | DX: N83.201 Unspecified ovarian cyst, right side (principal) ==

== ENCOUNTER → 2022-03-21 | Outpatient (CLI) | payer OTHER ==
[2022-03-21 11:13] LABS: HEMATOCRIT 42.4 % (36.0-47.0); HEMOGLOBIN 13.8 g/dl (12.0-15.5); MEAN CORPUSCULAR HEMOGLOBIN 29.3 pg (27.0-33.0); MEAN CORPUSCULAR HGB CONC 32.5 g/dl (32.0-36.5); PLATELET COUNT, AUTOMATED 250 10^3/uL (150-450); RED BLOOD COUNT 4.71 10^6/uL (4.00-5.40); WHITE BLOOD COUNT 5.6 10^3/uL (4.0-10.0)
[2022-03-21 12:00] LABS: ALBUMIN 4.1 GM/DL (3.2-5.2); ALT/SGPT 111 U/L (12-78); BILIRUBIN,TOTAL 0.4 MG/DL (0.2-1.0); BLOOD UREA NITROGEN 15 MG/DL (7-18); CALCIUM LEVEL 9.1 MG/DL (8.5-10.1); CARBON DIOXIDE LEVEL 29 MEQ/L (21-32); CHLORIDE LEVEL 104 MEQ/L (98-107); CREATININE FOR GFR 0.75 MG/DL (0.55-1.30); GLOMERULAR FILTRATION RATE > 60.0 (>51); GLUCOSE, FASTING 174 MG/DL (70-100); POTASSIUM SERUM 3.6 MEQ/L (3.5-5.1); SODIUM LEVEL 139 MEQ/L (136-145); TOTAL PROTEIN 7.9 GM/DL (6.4-8.2)
[2022-03-21 12:55] LABS: CA 125 7.2 U/ML (<30.2)
[2022-03-23 15:08] LABS: HE4 42.1 pmol/L (0.0-105.2)
== END ==
LOC: M PLALAB 07:07
PROVIDERS: ATTEND Obstetrics & Gynecology
DX: N83.201 Unspecified ovarian cyst, right side (principal)

== ENCOUNTER → 2022-06-26 | Outpatient (CLI) | payer OTHER ==
[2022-06-26 13:17] LABS: BASO # 0.1 10^3/uL (0.0-0.2); BASO % 1.1 % (0.0-1.0); EOS # 0.3 10^3/uL (0.0-0.5); EOS % 4.9 % (0.0-3.0); HEMATOCRIT 45.6 % (36.0-47.0); LYMPH # 2.5 10^3/uL (1.5-5.0); LYMPH % 39.3 % (24.0-44.0); MEAN CORPUSCULAR HEMOGLOBIN 29.4 pg (27.0-33.0); MEAN CORPUSCULAR HGB CONC 32.9 g/dl (32.0-36.5); MEAN CORPUSCULAR VOLUME 89.2 fl (80.0-96.0); MONO # 0.4 10^3/uL (0.0-0.8); NEUTROPHILS % 47.5 % (36.0-66.0); PLATELET COUNT, AUTOMATED 272 10^3/uL (150-450); RED BLOOD COUNT 5.11 10^6/uL (4.00-5.40); WHITE BLOOD COUNT 6.3 10^3/uL (4.0-10.0)
[2022-06-26 13:33] LABS: INR 0.91; PROTHROMBIN TIME 12.5 SECONDS (12.5-14.5)
[2022-06-26 13:34] LABS: PARTIAL THROMBOPLASTIN TIME 26.9 SECONDS (24.8-34.2)
[2022-06-26 14:02] LABS: MAGNESIUM LEVEL 2.1 MG/DL (1.8-2.4)
[2022-06-26 14:06] LABS: THYROID STIMULATING HORMONE 17.128 uIU/ML (0.55-4.78)
[2022-06-26 14:07] LABS: FREE T4 0.84 NG/DL (0.89-1.76)
[2022-06-26 14:11] LABS: ALBUMIN 4.1 G/DL (3.2-5.2); ALKALINE PHOSPHATASE 98 U/L (46-116); ALT/SGPT 200 U/L (7.0-40); AST/SGOT 129 U/L (<34); BILIRUBIN,TOTAL 0.5 MG/DL (0.3-1.2); BLOOD UREA NITROGEN 10 MG/DL (9-23); CALCIUM LEVEL 9.1 MG/DL (8.5-10.1); CARBON DIOXIDE LEVEL 28 MMOL/L (20-31); CHLORIDE LEVEL 103 MMOL/L (98-107); CHOLESTEROL LEVEL 193 MG/DL (<200); CHOLESTEROL RISK RATIO 3.35 (<5); CREATININE FOR GFR 0.64 MG/DL (0.55-1.30); GLOMERULAR FILTRATION RATE > 60.0 (>51); GLUCOSE, FASTING 102 MG/DL (60-100); HDL CHOLESTEROL 57.5 MG/DL (>40); LDL CHOLESTEROL 120.1 MG/DL (<100); NON-HDL-C 136 MG/DL; POTASSIUM SERUM 3.7 MMOL/L (3.5-5.1); SODIUM LEVEL 142 MMOL/L (136-145); TRIGLYCERIDES LEVEL 77 MG/DL (<150)
[2022-06-26 17:52] LABS: HEMOGLOBIN A1c 5.8 % (4.0-6.0)
== END ==
LOC: M PLALAB 12:04
PROVIDERS: ATTEND Family Medicine
DX: Z01.818 Encounter for other preprocedural examination (principal); R73.01 Impaired fasting glucose; I10 Essential (primary) hypertension

== ENCOUNTER → 2022-06-28 | Outpatient (CLI) | payer OTHER | LOC: M LABSMTC 09:14 | PROVIDERS: ATTEND Anesthesiology | DX: Z01.812 Encounter for preprocedural laboratory examination (principal); Z11.52 Encounter for screening for COVID-19 ==

== ENCOUNTER → 2022-06-29 | Outpatient (CLI) | payer OTHER ==
[~2022-06-29] MED LIST changes: +COLA100C5 PO; +LOSA25TA13 PO; +ONDA4TAB6 PO; +OXYC1TAB23 PO
== END ==
LOC: M RAD 14:55
PROVIDERS: ATTEND Obstetrics & Gynecology
DX: N83.201 Unspecified ovarian cyst, right side (principal); D25.9 Leiomyoma of uterus, unspecified

== ENCOUNTER 2022-07-03 06:06 | Day surgery (SDC) | payer OTHER ==
[2022-07-03] VITALS (9 sets, daily range): BP systolic 104–135; BP diastolic 60–86
[~2022-07-03] VITALS: Ht 157.5 cm; Wt 67.1 kg
[~2022-07-03 06:06] MED LIST changes: -COLA100C5 PO; -LOSA25TA13 PO; +LR 1,000 ML IV ONE; -ONDA4TAB6 PO; -OXYC1TAB23 PO
[2022-07-03] MEDS ORDERED: LR 1,000 ML IV SCH ×2 (06:30→11:30)
[2022-07-03] MEDS ORDERED: LOSA25TA13 PO (06:30)
[2022-07-03 06:45] LABS: HEMATOCRIT 42.9 % (36.0-47.0); HEMOGLOBIN 14.1 g/dl (12.0-15.5); MEAN CORPUSCULAR HEMOGLOBIN 29.2 pg (27.0-33.0); MEAN CORPUSCULAR HGB CONC 32.9 g/dl (32.0-36.5); MEAN CORPUSCULAR VOLUME 88.8 fl (80.0-96.0); PLATELET COUNT, AUTOMATED 268 10^3/uL (150-450); RED BLOOD COUNT 4.83 10^6/uL (4.00-5.40); WHITE BLOOD COUNT 6.5 10^3/uL (4.0-10.0)
[2022-07-03] MEDS ORDERED: BUPIVACAINE HCL 0.25% 30ML VIAL As Ordered ONE (07:10)
[2022-07-03] MEDS ORDERED: METHYLENE BLUE 0.5% (5MG/ML) 10 ML AMP (PROVAYBLUE) As Ordered ONE (07:11)
[2022-07-03] MEDS ORDERED: fentaNYL 100 MCG/2 ML INJECTION As Ordered ONE (07:14)
[2022-07-03] MEDS ORDERED: MIDAZOLAM INJ 2MG/2ML VIAL (J2250 PER 1MG) As Ordered ONE (07:14)
[2022-07-03] MEDS ORDERED: LIDOCAINE 2% 100MG/5ML SDV (FOR ANES.) As Ordered ONE (07:14)
[2022-07-03] MEDS ORDERED: propofoL 200 MG/20 ML VIAL As Ordered ONE (07:14)
[2022-07-03] MEDS ORDERED: SUGAMMADEX SODIUM 500 MG/5 ML VIAL (BRIDION) As Ordered ONE (07:15)
[2022-07-03] MEDS ORDERED: ONDANSETRON 4MG 2ML VIAL As Ordered ONE (07:15)
[2022-07-03] MEDS ORDERED: ROCURONIUM BROMIDE 50MG/5ML VIAL As Ordered ONE ×2 (07:15→07:53)
[2022-07-03] MEDS ORDERED: KETOROLAC 60MG 2ML VIAL As Ordered ONE (07:15)
[2022-07-03 07:37] LABS: HCG, SERUM QUALITATIVE NEGATIVE (NEGATIVE)
[2022-07-03] MEDS ORDERED: HYDROmorphone HCL 2MG/ML 1ML VIAL As Ordered ONE (08:28)
[2022-07-03] MEDS ORDERED: SILVER NITRATE APPLICATOR (1 = QTY 10) As Ordered ONE (10:06)
[2022-07-03] MEDS ORDERED: oxyCODONE 5MG TAB PO PRN (10:15)
[2022-07-03] MEDS ORDERED: fentaNYL 100 MCG/2 ML INJECTION IV PRN (10:15)
[2022-07-03] MEDS ORDERED: ONDANSETRON 4MG 2ML VIAL IV PRN (10:15)
[2022-07-03] MEDS ORDERED: MORPHINE 4 MG/ML 1ML VIAL IV PRN (11:40)
[2022-07-03] MEDS ORDERED: PROMETHAZINE 25MG/ML 1ML VIAL IV PRN (11:40)
[2022-07-03] MEDS ORDERED: PERCOCET 5MG/325MG TAB PO PRN ×2 (11:40)
[2022-07-03] MEDS ORDERED: OXYC1TAB23 PO (11:47)
[2022-07-03] MEDS ORDERED: COLA100C5 PO (11:48)
[2022-07-03] MEDS ORDERED: ONDA4TAB6 PO (11:49)
[2022-07-03] MEDS: LR 1,000 ML IV SCH ×2 (13:56→21:53)
[2022-07-03] MEDS ORDERED: ceFAZolin SOD 2 GM in IV 1 EA IV ONE (18:00)
[2022-07-03] MEDS: ACETAMINOPHEN 500 MG TAB PO PRN (19:05)
[2022-07-03] MEDS: DOCUSATE SODIUM 100MG CAPSULE PO SCH (21:32)
[2022-07-04] VITALS: BP 126/76
[2022-07-04 04:00] VITALS: BP 139/84
[2022-07-04] MEDS: LR 1,000 ML IV SCH (05:34)
[2022-07-04] MEDS: DOCUSATE SODIUM 100MG CAPSULE PO SCH (08:29)
[2022-07-04 08:30] VITALS: BP 154/67
[2022-07-04] MEDS: ACETAMINOPHEN 500 MG TAB PO PRN (08:42)
== END 2022-07-04 11:25 | disposition home or self-care (01) ==
LOC: M SDC 06:06 → M PED 13:30 → M SDC 07-04 11:25
PROVIDERS: ATTEND Obstetrics & Gynecology
DX: N83.201 Unspecified ovarian cyst, right side (principal); N80.121 Deep endometriosis of right ovary; N73.6 Female pelvic peritoneal adhesions (postinfective); I10 Essential (primary) hypertension; E89.0 Postprocedural hypothyroidism; R73.01 Impaired fasting glucose; K76.0 Fatty (change of) liver, not elsewhere classified; Z79.899 Other long term (current) drug therapy; Z79.890 Hormone replacement therapy; Z88.6 Allergy status to analgesic agent; Z88.8 Allergy status to other drugs, medicaments and biological substances
CPT/HCPCS: 36415; 58661; 81025; 84703; 85027; 86304; 86850; 86900; 86901; 88305; J0690; J1100; J1170; J2250; J2405; J3010; S2900

== ENCOUNTER → 2022-07-12 | Outpatient (CLI) | payer OTHER ==
[~2022-07-12] MED LIST changes: +COLA100C5 PO; +LOSA25TA13 PO; -LR 1,000 ML IV ONE; +ONDA4TAB6 PO; +OXYC1TAB23 PO
== END ==
LOC: M RAD 09:46
PROVIDERS: ATTEND Family Medicine
DX: K76.0 Fatty (change of) liver, not elsewhere classified (principal); R16.0 Hepatomegaly, not elsewhere classified

== ENCOUNTER → 2022-09-07 | Outpatient (CLI) | payer OTHER ==
[2022-09-07 13:30] LABS: FREE T4 1.25 NG/DL (0.89-1.76)
[2022-09-07 13:32] LABS: ALBUMIN 4.1 G/DL (3.2-5.2); ALKALINE PHOSPHATASE 81 U/L (46-116); ALT/SGPT 155 U/L (7.0-40); AST/SGOT 95 U/L (<34); BILIRUBIN,TOTAL 0.7 MG/DL (0.3-1.2); BLOOD UREA NITROGEN 14 MG/DL (9-23); CARBON DIOXIDE LEVEL 30 MMOL/L (20-31); CHLORIDE LEVEL 104 MMOL/L (98-107); CHOLESTEROL LEVEL 179 MG/DL (<200); CHOLESTEROL RISK RATIO 3.42 (<5); CREATININE FOR GFR 0.63 MG/DL (0.55-1.30); GLOMERULAR FILTRATION RATE > 60.0 (>51); GLUCOSE, FASTING 96 MG/DL (60-100); HDL CHOLESTEROL 52.2 MG/DL (>40); LDL CHOLESTEROL 109.8 MG/DL (<100); NON-HDL-C 127 MG/DL; POTASSIUM SERUM 3.9 MMOL/L (3.5-5.1); SODIUM LEVEL 140 MMOL/L (136-145); TOTAL 25(OH) VITAMIN D 91.8 NG/ML (20.0-100.0); TOTAL PROTEIN 7.4 G/DL (5.7-8.2); TRIGLYCERIDES LEVEL 85 MG/DL (<150)
[2022-09-07 14:06] LABS: HEMOGLOBIN A1c 6.2 % (4.0-6.0)
== END ==
LOC: M WUC 09:16
PROVIDERS: ATTEND Nurse Practitioner Adult Health
DX: R73.01 Impaired fasting glucose (principal); I10 Essential (primary) hypertension; E89.0 Postprocedural hypothyroidism; E55.9 Vitamin D deficiency, unspecified

== ENCOUNTER → 2022-09-07 | Outpatient (CLI) | payer OTHER ==
[2022-09-07 13:24] LABS: ALBUMIN 4.1 G/DL (3.2-5.2); ALKALINE PHOSPHATASE 82 U/L (46-116); ALT/SGPT 157 U/L (7.0-40); AST/SGOT 94 U/L (<34); BILIRUBIN,DIRECT 0.2 MG/DL (<0.4); BILIRUBIN,TOTAL 0.7 MG/DL (0.3-1.2); IRON (FE) 93 UG/DL (50-170); PERCENT SATURATION 28.5 % (13.2-45.0); TOTAL IRON BINDING CAPACITY 326 UG/DL (250-425); TOTAL PROTEIN 7.4 G/DL (5.7-8.2)
[2022-09-07 13:28] LABS: FERRITIN 224.7 NG/ML (7.3-270.7); FREE T4 1.24 NG/DL (0.89-1.76); THYROID STIMULATING HORMONE 0.099 uIU/ML (0.55-4.78)
[2022-09-07 13:41] LABS: HEPATITIS B SURFACE ANTIGEN NEGATIVE (NEGATIVE)
[2022-09-08 20:07] LABS: ANA (HEP2) Negative (.); ANTI-MITOCHONDRIAL ANTIBODY <20.0 Units (0.0-20.0)
== END ==
LOC: M WUC 09:19
PROVIDERS: ATTEND Family Medicine
DX: E89.0 Postprocedural hypothyroidism (principal); K76.0 Fatty (change of) liver, not elsewhere classified

== ENCOUNTER → 2022-10-25 | Outpatient (CLI) | payer OTHER ==
[2022-10-25 12:10] LABS: FREE T4 1.34 NG/DL (0.89-1.76)
[2022-10-25 12:44] LABS: THYROID STIMULATING HORMONE 0.072 uIU/ML (0.55-4.78)
== END ==
LOC: M WUC 08:38
PROVIDERS: ATTEND Family Medicine
DX: E89.0 Postprocedural hypothyroidism (principal)

== ENCOUNTER → 2022-10-25 | Outpatient (CLI) | payer OTHER | LOC: M WUC 08:30 | PROVIDERS: ATTEND Family Medicine | DX: E89.0 Postprocedural hypothyroidism (principal); Z53.9 Procedure and treatment not carried out, unspecified reason ==

== ENCOUNTER → 2022-11-05 | Outpatient (REF) | payer OTHER | LOC: M SFHCWAGY 18:03 | PROVIDERS: ATTEND Obstetrics & Gynecology | DX: Z12.4 Encounter for screening for malignant neoplasm of cervix (principal) ==

== ENCOUNTER → 2022-11-30 | Outpatient (CLI) | payer OTHER | LOC: M WHC 07:30 | PROVIDERS: ATTEND Obstetrics & Gynecology | DX: Z12.31 Encounter for screening mammogram for malignant neoplasm of breast (principal); R10.31 Right lower quadrant pain; D25.2 Subserosal leiomyoma of uterus; Z53.9 Procedure and treatment not carried out, unspecified reason ==

== ENCOUNTER → 2023-02-15 | Outpatient (CLI) | payer OTHER | LOC: M WHC 14:58 | PROVIDERS: ATTEND Obstetrics & Gynecology | DX: Z12.31 Encounter for screening mammogram for malignant neoplasm of breast (principal); R92.8 Other abnormal and inconclusive findings on diagnostic imaging of breast ==

== ENCOUNTER → 2023-06-10 | Outpatient (CLI) | payer OTHER | LOC: M PLAIMG 14:35 → M PLALAB 14:35 | PROVIDERS: ATTEND Nurse Practitioner Adult Health | DX: M54.9 Dorsalgia, unspecified (principal); M47.816 Spondylosis without myelopathy or radiculopathy, lumbar region ==

== ENCOUNTER → 2023-09-03 | Outpatient (CLI) | payer OTHER ==
[2023-09-03 11:06] LABS: ALBUMIN 4.1 G/DL (3.2-5.2); ALKALINE PHOSPHATASE 94 U/L (46-116); ALT/SGPT 46 U/L (7.0-40); AST/SGOT 29 U/L (<34); BILIRUBIN,TOTAL 0.6 MG/DL (0.3-1.2); BLOOD UREA NITROGEN 11 MG/DL (9-23); CALCIUM LEVEL 9.2 MG/DL (8.5-10.1); CARBON DIOXIDE LEVEL 30 MMOL/L (20-31); CHLORIDE LEVEL 103 MMOL/L (98-107); CHOLESTEROL LEVEL 204 MG/DL (<200); CHOLESTEROL RISK RATIO 3.61 (<5); CREATININE FOR GFR 0.64 MG/DL (0.55-1.30); FREE T4 1.22 NG/DL (0.89-1.76); GLOMERULAR FILTRATION RATE > 60.0 (>51); GLUCOSE, FASTING 98 MG/DL (60-100); HDL CHOLESTEROL 56.4 MG/DL (>40); LDL CHOLESTEROL 125.6 MG/DL (<100); NON-HDL-C 147.6 MG/DL; POTASSIUM SERUM 3.5 MMOL/L (3.5-5.1); SODIUM LEVEL 139 MMOL/L (136-145); THYROID STIMULATING HORMONE 0.271 uIU/ML (0.55-4.78); TOTAL PROTEIN 7.4 G/DL (5.7-8.2); TRIGLYCERIDES LEVEL 110 MG/DL (<150)
[2023-09-03 11:08] LABS: TOTAL 25(OH) VITAMIN D 40.2 NG/ML (20.0-100.0)
== END ==
LOC: M WUC 08:07
PROVIDERS: ATTEND Nurse Practitioner Adult Health
DX: I10 Essential (primary) hypertension (principal); E89.0 Postprocedural hypothyroidism; E55.9 Vitamin D deficiency, unspecified; R73.01 Impaired fasting glucose

== ENCOUNTER → 2023-11-21 | Outpatient (REF) | payer OTHER ==
[2023-11-21 15:41] LABS: THYROID STIMULATING HORMONE 3.689 uIU/ML (0.55-4.78)
[2023-11-21 15:43] LABS: FREE T4 1.14 NG/DL (0.89-1.76)
== END ==
LOC: M LABWUC 12:25
PROVIDERS: ATTEND Nurse Practitioner Adult Health
DX: E89.0 Postprocedural hypothyroidism (principal)

== ENCOUNTER → 2024-02-17 | Outpatient (CLI) | payer OTHER ==
[~2024-02-17] MED LIST changes: +ONDA-282 PO; -ONDA4TAB6 PO
[2024-02-17 13:07] LABS: CREATININE, URINE 201.2 MG/DL; MAU/CREAT RATIO 53.1 MCG/MG (0.0-30.0)
[2024-02-17 13:09] LABS: ALBUMIN 4.1 G/DL (3.2-5.2); ALKALINE PHOSPHATASE 81 U/L (46-116); ALT/SGPT 48 U/L (7.0-40); AST/SGOT 30 U/L (<34); BILIRUBIN,TOTAL 0.6 MG/DL (0.3-1.2); BLOOD UREA NITROGEN 13 MG/DL (9-23); CALCIUM LEVEL 8.9 MG/DL (8.5-10.1); CARBON DIOXIDE LEVEL 30 MMOL/L (20-31); CHLORIDE LEVEL 105 MMOL/L (98-107); CHOLESTEROL LEVEL 212 MG/DL (<200); CREATININE FOR GFR 0.67 MG/DL (0.55-1.30); GLOMERULAR FILTRATION RATE > 60.0 (>51); GLUCOSE, FASTING 111 MG/DL (60-100); HDL CHOLESTEROL 49.2 MG/DL (>40); LDL CHOLESTEROL 141.2 MG/DL (<100); NON-HDL-C 162.8 MG/DL; POTASSIUM SERUM 3.5 MMOL/L (3.5-5.1); SODIUM LEVEL 141 MMOL/L (136-145); TOTAL PROTEIN 7.4 G/DL (5.7-8.2); TRIGLYCERIDES LEVEL 108 MG/DL (<150)
[2024-02-17 13:10] LABS: THYROID STIMULATING HORMONE 5.962 uIU/ML (0.55-4.78)
[2024-02-17 13:11] LABS: FREE T4 1.07 NG/DL (0.89-1.76)
== END ==
LOC: M WUC 09:13
PROVIDERS: ATTEND Nurse Practitioner Adult Health
DX: E89.0 Postprocedural hypothyroidism (principal); I10 Essential (primary) hypertension; E55.9 Vitamin D deficiency, unspecified; R80.9 Proteinuria, unspecified

== ENCOUNTER → 2024-02-25 | Outpatient (CLI) | payer OTHER | LOC: M WHC 13:44 | PROVIDERS: ATTEND Obstetrics & Gynecology | DX: Z12.31 Encounter for screening mammogram for malignant neoplasm of breast (principal); Z87.42 Personal history of other diseases of the female genital tract; N63.42 Unspecified lump in left breast, subareolar; D25.9 Leiomyoma of uterus, unspecified ==

== ENCOUNTER → 2024-04-22 | Outpatient (REF) | payer OTHER | LOC: M SFHCWAGY 13:24 | PROVIDERS: ATTEND Obstetrics & Gynecology | DX: N84.1 Polyp of cervix uteri (principal) ==

== ENCOUNTER → 2024-05-13 | Outpatient (CLI) | payer OTHER | LOC: M CARPUL 11:01 | PROVIDERS: ATTEND Nurse Practitioner Adult Health | DX: R00.0 Tachycardia, unspecified (principal); I10 Essential (primary) hypertension; I36.1 Nonrheumatic tricuspid (valve) insufficiency ==

== ENCOUNTER → 2024-09-08 | Outpatient (CLI) | payer OTHER ==
[2024-09-08 13:41] LABS: HEMATOCRIT 38.3 % (36.0-47.0); HEMOGLOBIN 12.8 g/dl (12.0-15.5); MEAN CORPUSCULAR HEMOGLOBIN 29.7 pg (27.0-33.0); MEAN CORPUSCULAR HGB CONC 33.4 g/dl (32.0-36.5); MEAN CORPUSCULAR VOLUME 88.9 fl (80.0-96.0); PLATELET COUNT, AUTOMATED 335 10^3/uL (150-450); RED BLOOD COUNT 4.31 10^6/uL (4.00-5.40); WHITE BLOOD COUNT 5.7 10^3/uL (4.0-10.0)
[2024-09-08 13:46] LABS: ALBUMIN 3.8 G/DL (3.2-5.2); ALKALINE PHOSPHATASE 59 U/L (35-104); ALT/SGPT 22 U/L (7.0-40); AST/SGOT 17 U/L (<34); BILIRUBIN,TOTAL 0.8 MG/DL (0.3-1.2); BLOOD UREA NITROGEN 12 MG/DL (9-23); CALCIUM LEVEL 8.7 MG/DL (8.5-10.1); CARBON DIOXIDE LEVEL 30 MMOL/L (20-31); CHLORIDE LEVEL 106 MMOL/L (98-107); CHOLESTEROL LEVEL 205 MG/DL (<200); CHOLESTEROL RISK RATIO 3.33 (<5); CREATININE FOR GFR 0.63 MG/DL (0.55-1.30); GLOMERULAR FILTRATION RATE > 60.0 (>51); GLUCOSE, FASTING 94 MG/DL (60-100); HDL CHOLESTEROL 61.5 MG/DL (>40); LDL CHOLESTEROL 121.5 MG/DL (<100); NON-HDL-C 143.5 MG/DL; POTASSIUM SERUM 3.7 MMOL/L (3.5-5.1); SODIUM LEVEL 144 MMOL/L (136-145); TOTAL PROTEIN 7.3 G/DL (5.7-8.2); TRIGLYCERIDES LEVEL 110 MG/DL (<150)
[2024-09-08 13:48] LABS: FREE T4 1.51 NG/DL (0.89-1.76)
[2024-09-08 13:49] LABS: TOTAL 25(OH) VITAMIN D 32.9 NG/ML (20.0-100.0)
[2024-09-08 13:50] LABS: HEMOGLOBIN A1c 5.7 % (4.0-6.0)
== END ==
LOC: M WUC 09:05
PROVIDERS: ATTEND Nurse Practitioner Adult Health
DX: I10 Essential (primary) hypertension (principal); E55.9 Vitamin D deficiency, unspecified; R73.01 Impaired fasting glucose; E89.0 Postprocedural hypothyroidism

== ENCOUNTER 2024-11-27 07:17 | Day surgery (SDC) | payer OTHER ==
[~2024-11-27] VITALS: Ht 160 cm; Wt 56.2 kg
[~2024-11-27 07:17] MED LIST changes: +CALCTAB89 PO; +LEVO88TA3 PO; +LIDO1ADH93 TD; -LIDO5DIS41 TD; +METO1TAB32 PO; +VITATAB73 PO
[2024-11-27] MEDS ORDERED: propofoL 200 MG/20 ML VIAL As Ordered ONE (08:53)
[2024-11-27] MEDS ORDERED: LIDOCAINE 2% 100MG/5ML SDV (FOR ANES.) As Ordered ONE (08:53)
[2024-11-27 09:07] VITALS: TEMP 97.8
[2024-11-27 09:34] VITALS: BP 143/84; O2SAT 100
== END 2024-11-27 09:38 | disposition home or self-care (01) ==
LOC: M OPP 07:17
PROVIDERS: ATTEND Surgery
DX: Z12.11 Encounter for screening for malignant neoplasm of colon (principal); K63.5 Polyp of colon; Z88.6 Allergy status to analgesic agent; Z88.8 Allergy status to other drugs, medicaments and biological substances; Z79.899 Other long term (current) drug therapy

== ENCOUNTER → 2025-02-18 | Outpatient (CLI) | payer OTHER | LOC: M WHC 09:29 | PROVIDERS: ATTEND Obstetrics & Gynecology | DX: N83.209 Unspecified ovarian cyst, unspecified side (principal); D25.9 Leiomyoma of uterus, unspecified ==

== ENCOUNTER → 2025-05-03 | Outpatient (CLI) | payer OTHER ==
[2025-05-03 13:20] LABS: ALT/SGPT 16 U/L (7.0-40); AST/SGOT 18 U/L (<34); CALCIUM LEVEL 9.0 MG/DL (8.5-10.1); CARBON DIOXIDE LEVEL 28 MMOL/L (20-31); CHLORIDE LEVEL 103 MMOL/L (98-107); CREATININE FOR GFR 0.63 MG/DL (0.55-1.30); GLOMERULAR FILTRATION RATE > 90.0 (>51); POTASSIUM SERUM 4.0 MMOL/L (3.5-5.1); SODIUM LEVEL 143 MMOL/L (136-145)
[2025-05-03 13:21] LABS: FREE T4 1.41 NG/DL (0.89-1.76)
[2025-05-03 13:24] LABS: ESTIMATED AVERAGE GLUCOSE 117.0 MG/DL (60-110)
== END ==
LOC: M WUC 08:08
PROVIDERS: ATTEND Nurse Practitioner Adult Health
DX: I10 Essential (primary) hypertension (principal); E89.0 Postprocedural hypothyroidism; R73.01 Impaired fasting glucose; K76.0 Fatty (change of) liver, not elsewhere classified

== ENCOUNTER → 2025-05-05 | Outpatient (CLI) | payer OTHER | LOC: M PLAIMG 12:43 | PROVIDERS: ATTEND Nurse Practitioner Adult Health | DX: R93.89 Abnormal findings on diagnostic imaging of other specified body structures (principal) ==

== ENCOUNTER → 2025-07-05 | Outpatient (REF) | payer OTHER ==
[~2025-07-05] MED LIST changes: -LABE100T6 PO; +LABE100T91 PO
[2025-07-07 16:02] LABS: HPV APTIMA Not Detected (Not Detected)
== END ==
LOC: M SFHCWAGY 13:22
PROVIDERS: ATTEND Obstetrics & Gynecology
DX: Z12.4 Encounter for screening for malignant neoplasm of cervix (principal)

== ENCOUNTER → 2025-07-12 | Outpatient (CLI) | payer OTHER | LOC: M WHC 07:29 | PROVIDERS: ATTEND Obstetrics & Gynecology | DX: Z12.31 Encounter for screening mammogram for malignant neoplasm of breast (principal) ==